=== PATIENT | female | born 1970 | race Caucasian/White ===

== ENCOUNTER 2024-11-20 13:00 | Outpatient (REF) | payer BC, SELFPAY ==
--- NOTE | ~2024-11-20 | XR_ITS ---
EXAMINATION: XR ELBOW, RIGHT CLINICAL INFORMATION: M25.521 - Pain in right elbow COMPARISON: November 17, 2024 labeled outside images TECHNIQUE: AP, lateral, and oblique views of the right elbow. FINDINGS: Enthesophyte is noted at the lateral epicondyle. Marginal osteophytes are present involving the radial head and proximal radial ulnar joint. There are marginal ossific spurring olecranon in coronoid process. There are areas of calcification or ossification anterior to the distal humerus. No joint effusion is evident. XR/XR elbow RT min 3V IMPRESSION: Calcified or ossified bodies are seen in the soft tissues anterior to the distal humerus. These could represent osteochondral bodies or intra-articular bodies otherwise. The finding is less likely to represent arising directly from the distal humerus. Consider follow-up MRI elbow arthrogram. Mild to moderate osteoarthritis. Electronically signed by: Rigo Fish MD 11/20/2024 04:44 PM EDT
== END 2024-11-20 13:01 | disposition home or self-care (01) ==
LOC: HO.HOSX 13:00
DX: M25.521 Pain in right elbow (principal)
CPT/HCPCS: 73080

== ENCOUNTER 2024-11-20 13:47 | Outpatient (AMB) | payer BC, SELFPAY ==
--- NOTE | 2024-11-20 14:33 | A.OFFVIS_ITS ---
Intake Visit Reasons: [employer]- R elbow pain, ? radial head fx Intake Note: Sheyla is a 54 year old right hand dominant female who presents today for a evaluation of her right elbow pain. Her pain started on 11/14/24 Patient reports off and on pain for many years. Patient mentions not taking anything for pain at this time. Allergies No Known Allergies Allergy (Verified 11/20/24 14:36) HPI HPI [employer]- R elbow pain, ? radial head fx: Details: Ms. Capps is a 54 year old right hand dominant female who presents today for a evaluation of her right elbow pain. Her pain started on 11/14/24. She denies any acute injury or trauma. Pain is located on the medial aspect of the elbow. 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 She has had pain that waxes and wanes for many years. Review of Systems Const All systems reviewed & are unremarkable except as noted in HPI and below Physical Exam Const General: cooperative, healthy appearing and no acute distress Resp Effort & Inspection: normal respiratory effort and able to speak in complete sentences Extrem Other: Right elbow normal to inspection. No erythema, edema or signs of infection. Lacking about 40 degrees of full extension. She reports at baseline she does not have full extension but this is slightly worse than her baseline. able to pronate and supinate without pain. No tenderness to palpation of the radial head. Tenderness to palpation of the medial epicondyle. Denies numbness or tingling. Assessment & Plan Assessment & Plan (1) Medial epicondylitis of right elbow: Code(s): M77.01 - Medial epicondylitis, right elbow Category: Medical (2) Osteoarthritis of right elbow: Code(s): M19.021 - Primary osteoarthritis, right elbow Category: Medical Plan Ms. Capps is a 54 year old right hand dominant female who presents today for a evaluation of her right elbow pain. Her pain started on 11/14/24. She denies any acute injury or trauma. Pain is located on the medial aspect of the elbow. 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 She has had pain that waxes and wanes for many years. She was seen at an urgent care where x-rays were obtained and she was told that she has a radial head fracture. She was placed in a splint and instructed to followup with orthopedics out patient. While in the office today, the splint was removed for repeat x-rays which so significant osteoarthritis about the right elbow. However, on physical exam the patient is not having any pain over the radial head or difficulty with pronation or supination. Her pain is located over the medial epicondyle most consistent with medial epicondylitis. I have recommended a Medrol dose pack which was sent to the patient's pharmacy and an elbow compression sleeve. She will followup prn, sooner if needed X-rays of the right elbow obtained in the office today were reviewed by me, Rachel Lemus PA-C, and revealed significant arthritis changes. Orders: Orders XR elbow RT min 3V 11/20/24 BRENDA Yang M25.521 - Pain in right elbow Medications: New methylprednisolone (Medrol (Todd)) PO PER PKG DIR 21 ea 0RF Rachel Lemus PA-C Coding Level of Care Code New Pt Level 3 (58183) Diagnoses Medial epicondylitis of right elbow M77.01 Osteoarthritis of right elbow M19.021
== END 2024-11-20 14:54 | disposition home or self-care (01) ==
PROVIDERS: Visit Provider Physician Assistant
DX: M77.01 Medial epicondylitis, right elbow (principal); M19.021 Primary osteoarthritis, right elbow
CPT/HCPCS: 99203

== ENCOUNTER → 2024-11-20 13:50 | Outpatient (BNV) | payer BC, SELFPAY | PROVIDERS: Visit Provider Radiology Diagnostic Radiology | DX: M19.021 Primary osteoarthritis, right elbow (principal); M25.521 Pain in right elbow | CPT/HCPCS: 73080 ==